=== PATIENT | female | born 1950 | race Caucasian/White ===

== ENCOUNTER 2022-01-03 18:56 | Inpatient (IN) ==
[2022-01-03] MEDS ORDERED: Ondansetron ODT 4 MG TAB.RAPDIS SL PRN (21:56)
[2022-01-03] MEDS ORDERED: Naloxone 0.4 MG/ML INJ IVP PRN (21:56)
[2022-01-03] MEDS ORDERED: Acetaminophen 325 MG TABLET PO PRN (21:56)
[2022-01-03] MEDS ORDERED: Dextrose Gel 15 GM/37.5 ML TUBE PO PRN ×2 (22:03)
[2022-01-03] MEDS ORDERED: D5% in Water 1,000 ML IVC PRN (22:03)
[2022-01-03] MEDS ORDERED: *HR* Dextrose 50 % in Water (Syg) 50 ML SYRINGE IVP PRN (22:03)
[2022-01-04] MEDS ORDERED: hydrALAZINE 10 MG TABLET PO PRN (00:12)
[2022-01-04] MEDS ORDERED: Ipratropium/Albuterol Neb 3 ML IH PRN (00:12)
[2022-01-04] MEDS ORDERED: Ondansetron 4 MG/2 ML VIAL IVP PRN (00:12)
[2022-01-04] MEDS ORDERED: Naloxone 0.4 MG/ML INJ IVP PRN (00:12)
[2022-01-04] MEDS: *HR* OxyCODONE Immed Rel 5 MG TABLET PO PRN (00:43)
[2022-01-04] MEDS: Melatonin 3 MG TABLET PO PRN ×2 (00:43→21:05)
[2022-01-04 04:53] LABS: Hematocrit 31.8 % (35.3-44.9); Hemoglobin 10.7 g/dL (11.5-15.4); Mean Corpuscular HGB Conc 33.6 g/dL (31.6-35.5); Mean Corpuscular Hemoglobin 29.5 pg (28.0-33.3); Mean Corpuscular Volume 87.6 fL (83.0-100.0); Mean Platelet Volume 8.5 fL (9.4-12.4); Platelet Count 425 K/mcL (140-400); Red Blood Count 3.63 M/mcL (3.82-4.97); White Blood Count 8.7 K/mcL (4.3-11.1)
[2022-01-04 04:57] LABS: INR 1.6; Prothrombin Time 17.9 Seconds (9.4-12.1)
[2022-01-04 05:00] LABS: Activated Partial Thrombo Time 34.1 Seconds (26.0-36.0)
[2022-01-04 05:08] LABS: BUN/Creatinine Ratio 17 (6-26); Blood Urea Nitrogen 11 mg/dL (8-23); Carbon Dioxide 30 mEq/L (23-29); Chloride 91 mEq/L (98-107); Glucose 181 mg/dL (70-105); Potassium 3.8 mEq/L (3.5-5.1); Sodium 128 mEq/L (136-145); eGFR For African Americans > 60 (> 60); eGFR For Non-African Americans > 60 (> 60)
[2022-01-04 05:09] LABS: Calcium 9.9 mg/dL (8.6-10.3); Magnesium 1.5 mg/dL (1.6-2.6); Osmolality,Calculated 270 (280-300); Phosphorous 3.4 mg/dL (2.7-4.5)
[2022-01-04 08:08] LABS: Alanine Aminotransferase 9 Units/L (7-52); Alkaline Phosphatase 71 Units/L (34-104); Aspartate Amino Transferase 22 Units/L (13-39); Bilirubin,Total 0.4 mg/dL (0.3-1.0); Total Protein 6.5 g/dL (6.4-8.9)
[2022-01-04] MEDS: *HR* Rivaroxaban 15 MG TABLET PO SCH ×2 (08:45→17:29)
[2022-01-04] MEDS: Aspirin Enteric Coated 81 MG Tablet PO SCH (08:45)
[2022-01-04] MEDS: lisinopriL 20 MG TABLET PO SCH (08:45)
[2022-01-04] MEDS: amLODIPine 5 MG TABLET PO SCH (08:45)
[2022-01-04] MEDS: Insulin LISPRO 300 UNITS/3 ML VIAL SUBQ SCH ×3 (08:46→17:29)
[2022-01-04 14:22] LABS: Estimated Average Glucose 183 mg/dl
[2022-01-04] MEDS: Vancomycin 1,500 MG/265 ML IV.SOLN IVPB SCH (17:29)
[2022-01-04] MEDS: Latanoprost 2.5 ML BOTTLE BOTH EYES SCH (21:05)
[2022-01-05] MEDS: *HR* OxyCODONE Immed Rel 5 MG TABLET PO PRN (00:21)
[2022-01-05 05:03] LABS: Hematocrit 31.4 % (35.3-44.9); Hemoglobin 10.5 g/dL (11.5-15.4); Mean Corpuscular HGB Conc 33.4 g/dL (31.6-35.5); Mean Corpuscular Hemoglobin 29.3 pg (28.0-33.3); Mean Corpuscular Volume 87.7 fL (83.0-100.0); Mean Platelet Volume 8.5 fL (9.4-12.4); Platelet Count 416 K/mcL (140-400); Red Blood Count 3.58 M/mcL (3.82-4.97); Red Cell Distribution Width 14.1 % (11.5-14.5); White Blood Count 8.6 K/mcL (4.3-11.1)
[2022-01-05 05:16] LABS: BUN/Creatinine Ratio 14 (6-26); Blood Urea Nitrogen 9 mg/dL (8-23); Calcium 9.4 mg/dL (8.6-10.3); Carbon Dioxide 29 mEq/L (23-29); Chloride 94 mEq/L (98-107); Glucose 172 mg/dL (70-105); Magnesium 1.8 mg/dL (1.6-2.6); Osmolality,Calculated 271 (280-300); Potassium 3.6 mEq/L (3.5-5.1); Sodium 129 mEq/L (136-145); eGFR For African Americans > 60 (> 60); eGFR For Non-African Americans > 60 (> 60)
[2022-01-05] MEDS: *HR* HYDROcodone/Acet 5/325 mg TABLET PO PRN ×2 (06:14→20:17)
[2022-01-05] MEDS: Aspirin Enteric Coated 81 MG Tablet PO SCH (08:18)
[2022-01-05] MEDS: lisinopriL 20 MG TABLET PO SCH (08:18)
[2022-01-05] MEDS: *HR* Rivaroxaban 15 MG TABLET PO SCH ×2 (08:18→17:48)
[2022-01-05] MEDS: Insulin LISPRO 300 UNITS/3 ML VIAL SUBQ SCH ×3 (08:18→17:48)
[2022-01-05] MEDS: amLODIPine 5 MG TABLET PO SCH (08:18)
[2022-01-05] MEDS: Vancomycin 1,500 MG/265 ML IV.SOLN IVPB SCH (08:18)
[2022-01-05] MEDS ORDERED: ceFAZolin 1,000 MG in Water for inj. (sterile) 10 ML IVP SCH (16:00)
[2022-01-05] MEDS: CeFAZolin 2,000 MG/120 ML BAG IVPB SCH (20:17)
[2022-01-05] MEDS: Melatonin 3 MG TABLET PO PRN (20:17)
[2022-01-05] MEDS: Latanoprost 2.5 ML BOTTLE BOTH EYES SCH (20:18)
[2022-01-06] MEDS: CeFAZolin 2,000 MG/120 ML BAG IVPB SCH ×3 (02:26→17:31)
[2022-01-06] MEDS: *HR* HYDROcodone/Acet 5/325 mg TABLET PO PRN ×2 (02:26→21:50)
[2022-01-06] MEDS: *HR* Rivaroxaban 15 MG TABLET PO SCH ×2 (09:10→17:30)
[2022-01-06] MEDS: Aspirin Enteric Coated 81 MG Tablet PO SCH (09:10)
[2022-01-06] MEDS: lisinopriL 20 MG TABLET PO SCH (09:10)
[2022-01-06] MEDS: amLODIPine 5 MG TABLET PO SCH (09:10)
[2022-01-06] MEDS: Insulin LISPRO 300 UNITS/3 ML VIAL SUBQ SCH ×3 (09:11→17:25)
[2022-01-06] MEDS ORDERED: Insulin DETEMIR 100 UNIT/ML per UNIT SUBQ ONE (09:15)
[2022-01-06] MEDS: Insulin DETEMIR 100 UNIT/ML X5UNITS SUBQ SCH ×2 (09:23→22:07)
[2022-01-06] MEDS: Melatonin 3 MG TABLET PO PRN (21:51)
[2022-01-06] MEDS: Latanoprost 2.5 ML BOTTLE BOTH EYES SCH (22:08)
[2022-01-07] MEDS: CeFAZolin 2,000 MG/120 ML BAG IVPB SCH ×3 (02:17→18:14)
[2022-01-07] MEDS: amLODIPine 5 MG TABLET PO SCH (08:34)
[2022-01-07] MEDS: lisinopriL 20 MG TABLET PO SCH (08:34)
[2022-01-07] MEDS: Aspirin Enteric Coated 81 MG Tablet PO SCH (08:34)
[2022-01-07] MEDS: *HR* Rivaroxaban 15 MG TABLET PO SCH ×2 (08:35→18:14)
[2022-01-07] MEDS: polyethylene glycoL 3350 17 GM POWD.PACK PO SCH (08:35)
[2022-01-07] MEDS: Insulin LISPRO 300 UNITS/3 ML VIAL SUBQ SCH ×3 (08:35→18:15)
[2022-01-07] MEDS: Insulin DETEMIR 100 UNIT/ML X5UNITS SUBQ SCH ×2 (08:36→22:35)
[2022-01-07] MEDS: Melatonin 3 MG TABLET PO PRN (22:28)
[2022-01-07] MEDS: *HR* HYDROcodone/Acet 5/325 mg TABLET PO PRN (22:32)
[2022-01-07] MEDS: Latanoprost 2.5 ML BOTTLE BOTH EYES SCH (22:38)
[2022-01-08] MEDS: CeFAZolin 2,000 MG/120 ML BAG IVPB SCH ×3 (02:34→16:48)
[2022-01-08 04:45] LABS: Basophils # 0.1 K/mcL (0.0-0.2); Basophils % 0.7 %; Eosinophils # 0.2 K/mcL (0.0-0.6); Eosinophils % 3.2 %; Immature Granulocytes % 0.7 % (0-4); Lymphocytes # 2.1 K/mcL (0.6-4.6); Mean Corpuscular HGB Conc 32.3 g/dL (31.6-35.5); Mean Corpuscular Hemoglobin 28.8 pg (28.0-33.3); Mean Corpuscular Volume 89.3 fL (83.0-100.0); Mean Platelet Volume 8.8 fL (9.4-12.4); Monocytes # 0.9 K/mcL (0.0-1.3); Monocytes % 12.3 %; Neutrophils # 3.9 K/mcL (1.6-8.9); Platelet Count 347 K/mcL (140-400); Red Blood Count 3.47 M/mcL (3.82-4.97); Red Cell Distribution Width 14.2 % (11.5-14.5); Segmented Neutrophils % 54.1 %; White Blood Count 7.2 K/mcL (4.3-11.1)
[2022-01-08 04:57] LABS: BUN/Creatinine Ratio 15 (6-26); Blood Urea Nitrogen 10 mg/dL (8-23); Calcium 9.9 mg/dL (8.6-10.3); Carbon Dioxide 31 mEq/L (23-29); Chloride 99 mEq/L (98-107); Glucose 161 mg/dL (70-105); Osmolality,Calculated 283 (280-300); Potassium 3.9 mEq/L (3.5-5.1); Sodium 135 mEq/L (136-145); eGFR For African Americans > 60 (> 60); eGFR For Non-African Americans > 60 (> 60)
[2022-01-08 06:51] VITALS: BP 155/78; PULSE 99; RESP 16; TEMP 98.1; O2SAT 98
[2022-01-08] MEDS: *HR* OxyCODONE Immed Rel 5 MG TABLET PO PRN (06:51)
[2022-01-08] MEDS: lisinopriL 20 MG TABLET PO SCH (09:36)
[2022-01-08] MEDS: amLODIPine 5 MG TABLET PO SCH (09:36)
[2022-01-08] MEDS: *HR* Rivaroxaban 15 MG TABLET PO SCH ×2 (09:36→16:48)
[2022-01-08] MEDS: Insulin LISPRO 300 UNITS/3 ML VIAL SUBQ SCH ×3 (09:36→16:45)
[2022-01-08] MEDS: Aspirin Enteric Coated 81 MG Tablet PO SCH (09:36)
[2022-01-08] MEDS: Insulin DETEMIR 100 UNIT/ML X5UNITS SUBQ SCH (09:37)
[2022-01-08] MEDS: polyethylene glycoL 3350 17 GM POWD.PACK PO SCH (09:38)
[2022-01-08] MEDS ORDERED: Sennosides/Docusate Sodium TABLET PO SCH (21:00)
[2022-01-08] MEDS ORDERED: polyethylene glycoL 3350 17 GM POWD.PACK PO SCH (21:00)
[2022-01-24] MEDS ORDERED: *HR* Rivaroxaban 10 MG TABLET PO SCH (17:00)
== END 2022-01-08 19:24 | disposition short-term general hospital (02) | DRG 602 ==
LOC: INPGRE 20:20
PROVIDERS: ADMIT Family Medicine; ATTEND Family Medicine

== ENCOUNTER 2022-01-31 16:14 | Inpatient (IN) ==
[2022-01-31] MEDS ORDERED: D5% in Water 1,000 ML IVC PRN (21:58)
[2022-01-31] MEDS ORDERED: *HR* Dextrose 50 % in Water (Syg) 50 ML SYRINGE IVP PRN (21:58)
[2022-01-31] MEDS ORDERED: Dextrose Gel 15 GM/37.5 ML TUBE PO PRN ×2 (21:58)
[2022-01-31] MEDS ORDERED: NON-FORMULARY MEDICATION 1 EACH EACH (Cefazolin 2,000 MG/120 ML Bag) IVPB SCH (22:00)
[2022-02-01] MEDS ORDERED: SODIUM CHLORIDE MINI 0.9% IVPB SCH
[2022-02-01] MEDS ORDERED: CEFAZOLIN IVPB SCH
[2022-02-01 00:08] LABS: Bilirubin,Urine Negative (Negative); Blood,Urine Moderate (Negative); Clarity,Urine Slightly Cloudy (Clear); Color,Urine Yellow (Yellow); Glucose,Urine (UA) Normal (Normal); Ketones,Urine Negative (Negative); Leukocyte Esterase,Urine Moderate (Negative); Nitrite,Urine Negative (Negative); Protein,Urine Negative (Neg-Trace); Specific Gravity,Urine 1.015 (1.010-1.025); Urobilinogen,Urine Normal (Normal)
[2022-02-01 00:19] LABS: Squamous Epithelial Cell,Urine Few per hpf (None-Few); WBC,Urine 15-30 per hpf (0-3)
[2022-02-01 00:20] LABS: Triple Phosphate Crystal,Urine Present per hpf
[2022-02-01 00:21] LABS: Bacteria,Urine Few per hpf (None-Few)
[2022-02-01] MEDS: ceFAZolin 1,000 MG in 0.9 % Sodium Chloride Mini Bag 100 ML IVPB SCH ×2 (00:23→00:59)
[2022-02-01 04:56] LABS: Basophils # 0.1 K/mcL (0.0-0.2); Basophils % 0.8 %; Eosinophils # 0.4 K/mcL (0.0-0.6); Hematocrit 32.2 % (35.3-44.9); Hemoglobin 10.2 g/dL (11.5-15.4); Immature Granulocytes % 0.5 % (0-4); Lymphocytes # 3.1 K/mcL (0.6-4.6); Lymphocytes % 42.1 %; Mean Corpuscular HGB Conc 31.7 g/dL (31.6-35.5); Mean Corpuscular Hemoglobin 28.7 pg (28.0-33.3); Mean Corpuscular Volume 90.4 fL (83.0-100.0); Mean Platelet Volume 8.9 fL (9.4-12.4); Monocytes # 0.8 K/mcL (0.0-1.3); Monocytes % 11.1 %; Neutrophils # 2.9 K/mcL (1.6-8.9); Platelet Count 292 K/mcL (140-400); Red Blood Count 3.56 M/mcL (3.82-4.97); Red Cell Distribution Width 15.6 % (11.5-14.5); Segmented Neutrophils % 39.5 %; White Blood Count 7.3 K/mcL (4.3-11.1)
[2022-02-01 05:14] LABS: BUN/Creatinine Ratio 27 (6-26); Blood Urea Nitrogen 16 mg/dL (8-23); Calcium 9.5 mg/dL (8.6-10.3); Carbon Dioxide 27 mEq/L (23-29); Chloride 105 mEq/L (98-107); Glucose 130 mg/dL (70-105); Osmolality,Calculated 293 (280-300); Potassium 2.9 mEq/L (3.5-5.1); Sodium 140 mEq/L (136-145)
[2022-02-01] MEDS: Insulin LISPRO 300 UNITS/3 ML VIAL SUBQ SCH ×3 (08:57→16:30)
[2022-02-01] MEDS ORDERED: amLODIPine 5 MG TABLET PO SCH (09:00)
[2022-02-01] MEDS: *HR* Rivaroxaban 15 MG TABLET PO SCH ×2 (09:37→16:52)
[2022-02-01] MEDS: Aspirin Enteric Coated 81 MG Tablet PO SCH (09:37)
[2022-02-01] MEDS: lisinopriL 20 MG TABLET PO SCH (09:38)
[2022-02-01] MEDS: CeFAZolin 2,000 MG/120 ML BAG IVPB SCH ×2 (09:39→14:34)
[2022-02-01] MEDS: polyethylene glycoL 3350 17 GM POWD.PACK PO SCH (09:39)
[2022-02-01] MEDS: Insulin DETEMIR 100 UNIT/ML X5UNITS SUBQ SCH ×2 (09:39→20:35)
[2022-02-01] MEDS: Gabapentin 100 MG CAPSULE PO SCH ×2 (15:55→20:36)
[2022-02-01] MEDS: Nafcillin 2,000 MG in 0.9 % Sodium Chloride Mini Bag 100 ML IVPB SCH (20:35)
[2022-02-01] MEDS: Melatonin 3 MG TABLET PO PRN (20:36)
[2022-02-01] MEDS: ceFAZolin 2,000 MG in 0.9 % Sodium Chloride 100 ML IVPB SCH (21:49)
[2022-02-01] MEDS: Latanoprost 2.5 ML BOTTLE BOTH EYES SCH (21:49)
[2022-02-02] MEDS: Nafcillin 2,000 MG in 0.9 % Sodium Chloride Mini Bag 100 ML IVPB SCH ×6 (00:26→20:28)
[2022-02-02] MEDS: ceFAZolin 2,000 MG in 0.9 % Sodium Chloride 100 ML IVPB SCH (04:46)
[2022-02-02 05:12] LABS: Hemoglobin 9.9 g/dL (11.5-15.4); Mean Corpuscular HGB Conc 31.9 g/dL (31.6-35.5); Mean Corpuscular Hemoglobin 29.1 pg (28.0-33.3); Mean Corpuscular Volume 91.2 fL (83.0-100.0); Mean Platelet Volume 8.7 fL (9.4-12.4); Platelet Count 271 K/mcL (140-400); Red Cell Distribution Width 15.7 % (11.5-14.5); White Blood Count 5.7 K/mcL (4.3-11.1)
[2022-02-02 05:28] LABS: Alanine Aminotransferase 5 Units/L (7-52); Albumin/Globulin Ratio 0.9 (1.1-2.2); Alkaline Phosphatase 112 Units/L (34-104); Aspartate Amino Transferase 7 Units/L (13-39); BUN/Creatinine Ratio 18 (6-26); Bilirubin,Total 0.4 mg/dL (0.3-1.0); Blood Urea Nitrogen 10 mg/dL (8-23); Calcium 9.2 mg/dL (8.6-10.3); Carbon Dioxide 26 mEq/L (23-29); Chloride 107 mEq/L (98-107); Globulin 3.3 g/dL (2.4-3.5); Glucose 153 mg/dL (70-105); Magnesium 1.9 mg/dL (1.6-2.6); Osmolality,Calculated 294 (280-300); Potassium 3.5 mEq/L (3.5-5.1); Sodium 141 mEq/L (136-145); Total Protein 6.3 g/dL (6.4-8.9)
[2022-02-02] MEDS: Insulin DETEMIR 100 UNIT/ML X5UNITS SUBQ SCH ×2 (08:05→20:27)
[2022-02-02] MEDS: *HR* Rivaroxaban 15 MG TABLET PO SCH ×2 (08:06→15:55)
[2022-02-02] MEDS: Gabapentin 100 MG CAPSULE PO SCH ×3 (08:06→20:27)
[2022-02-02] MEDS: Insulin LISPRO 300 UNITS/3 ML VIAL SUBQ SCH ×3 (08:06→16:20)
[2022-02-02] MEDS: lisinopriL 20 MG TABLET PO SCH (08:06)
[2022-02-02] MEDS: Aspirin Enteric Coated 81 MG Tablet PO SCH (08:06)
[2022-02-02] MEDS: polyethylene glycoL 3350 17 GM POWD.PACK PO SCH (08:07)
[2022-02-02] MEDS: NIFEdipine XL (24 HR) 30 MG TAB.ER.24 PO SCH (08:09)
[2022-02-02 10:30] LABS: Estimated Average Glucose 146 mg/dl; Hemoglobin A1C 6.7 %
[2022-02-02] MEDS: CeFAZolin 2,000 MG/120 ML BAG IVPB SCH (16:53)
[2022-02-02] MEDS: Melatonin 3 MG TABLET PO PRN (20:26)
[2022-02-02] MEDS: Latanoprost 2.5 ML BOTTLE BOTH EYES SCH (20:27)
[2022-02-03] MEDS: Nafcillin 2,000 MG in 0.9 % Sodium Chloride Mini Bag 100 ML IVPB SCH ×6 (00:32→21:18)
[2022-02-03] MEDS: CeFAZolin 2,000 MG/120 ML BAG IVPB SCH ×2 (01:07→08:17)
[2022-02-03] MEDS: NIFEdipine XL (24 HR) 30 MG TAB.ER.24 PO SCH (08:05)
[2022-02-03] MEDS: lisinopriL 20 MG TABLET PO SCH (08:06)
[2022-02-03] MEDS: *HR* Rivaroxaban 15 MG TABLET PO SCH ×2 (08:06→17:01)
[2022-02-03] MEDS: Gabapentin 100 MG CAPSULE PO SCH ×3 (08:06→21:18)
[2022-02-03] MEDS: polyethylene glycoL 3350 17 GM POWD.PACK PO SCH (08:07)
[2022-02-03] MEDS: Aspirin Enteric Coated 81 MG Tablet PO SCH (08:07)
[2022-02-03] MEDS: Insulin DETEMIR 100 UNIT/ML X5UNITS SUBQ SCH ×2 (08:33→21:17)
[2022-02-03] MEDS: Insulin LISPRO 300 UNITS/3 ML VIAL SUBQ SCH ×3 (08:33→16:59)
[2022-02-03] MEDS: Ertapenem 1,000 MG in 0.9 % Sodium Chloride Mini Bag 100 ML IVPB SCH (12:39)
[2022-02-03] MEDS: Melatonin 3 MG TABLET PO PRN (21:17)
[2022-02-03] MEDS: Lactobacillus 1 EACH CAP.SPRINK PO SCH (21:18)
[2022-02-03] MEDS: Latanoprost 2.5 ML BOTTLE BOTH EYES SCH (21:26)
[2022-02-04] MEDS: Nafcillin 2,000 MG in 0.9 % Sodium Chloride Mini Bag 100 ML IVPB SCH ×6 (00:28→20:00)
[2022-02-04] MEDS: NIFEdipine XL (24 HR) 30 MG TAB.ER.24 PO SCH (08:07)
[2022-02-04] MEDS: *HR* Rivaroxaban 15 MG TABLET PO SCH ×2 (08:07→16:00)
[2022-02-04] MEDS: lisinopriL 20 MG TABLET PO SCH (08:07)
[2022-02-04] MEDS: Gabapentin 100 MG CAPSULE PO SCH ×3 (08:08→19:59)
[2022-02-04] MEDS: Lactobacillus 1 EACH CAP.SPRINK PO SCH ×2 (08:08→19:59)
[2022-02-04] MEDS: polyethylene glycoL 3350 17 GM POWD.PACK PO SCH (08:08)
[2022-02-04] MEDS: Aspirin Enteric Coated 81 MG Tablet PO SCH (08:08)
[2022-02-04] MEDS: Ertapenem 1,000 MG in 0.9 % Sodium Chloride Mini Bag 100 ML IVPB SCH (08:09)
[2022-02-04] MEDS: Insulin LISPRO 300 UNITS/3 ML VIAL SUBQ SCH ×3 (08:11→16:01)
[2022-02-04] MEDS: Insulin DETEMIR 100 UNIT/ML X5UNITS SUBQ SCH ×2 (10:26→20:01)
[2022-02-04] MEDS: Melatonin 3 MG TABLET PO PRN (19:59)
[2022-02-04] MEDS: *HR* HYDROcodone/Acet 5/325 mg TABLET PO PRN (19:59)
[2022-02-04] MEDS: Latanoprost 2.5 ML BOTTLE BOTH EYES SCH (20:00)
[2022-02-05] MEDS: Nafcillin 2,000 MG in 0.9 % Sodium Chloride Mini Bag 100 ML IVPB SCH ×6 (00:03→19:39)
[2022-02-05 04:45] LABS: Basophils # 0.1 K/mcL (0.0-0.2); Basophils % 1.2 %; Eosinophils # 0.5 K/mcL (0.0-0.6); Eosinophils % 7.8 %; Hematocrit 32.2 % (35.3-44.9); Hemoglobin 10.5 g/dL (11.5-15.4); Immature Granulocytes % 0.2 % (0-4); Lymphocytes # 2.5 K/mcL (0.6-4.6); Lymphocytes % 42.9 %; Mean Corpuscular HGB Conc 32.6 g/dL (31.6-35.5); Mean Corpuscular Hemoglobin 29.5 pg (28.0-33.3); Mean Corpuscular Volume 90.4 fL (83.0-100.0); Mean Platelet Volume 8.7 fL (9.4-12.4); Monocytes # 0.6 K/mcL (0.0-1.3); Monocytes % 10.4 %; Neutrophils # 2.2 K/mcL (1.6-8.9); Platelet Count 231 K/mcL (140-400); Red Blood Count 3.56 M/mcL (3.82-4.97); Red Cell Distribution Width 15.6 % (11.5-14.5); Segmented Neutrophils % 37.5 %; White Blood Count 5.9 K/mcL (4.3-11.1)
[2022-02-05 05:54] LABS: Blood Urea Nitrogen 8 mg/dL (8-23); Calcium 9.2 mg/dL (8.6-10.3); Carbon Dioxide 29 mEq/L (23-29); Chloride 105 mEq/L (98-107); Glucose 154 mg/dL (70-105); Osmolality,Calculated 291 (280-300); Potassium 3.8 mEq/L (3.5-5.1); Sodium 140 mEq/L (136-145)
[2022-02-05 05:58] LABS: BUN/Creatinine Ratio 14 (6-26)
[2022-02-05] MEDS: Gabapentin 100 MG CAPSULE PO SCH ×3 (08:30→19:41)
[2022-02-05] MEDS: NIFEdipine XL (24 HR) 30 MG TAB.ER.24 PO SCH (08:30)
[2022-02-05] MEDS: Lactobacillus 1 EACH CAP.SPRINK PO SCH ×2 (08:30→19:40)
[2022-02-05] MEDS: lisinopriL 20 MG TABLET PO SCH (08:30)
[2022-02-05] MEDS: Aspirin Enteric Coated 81 MG Tablet PO SCH (08:30)
[2022-02-05] MEDS: *HR* Rivaroxaban 15 MG TABLET PO SCH ×2 (08:30→16:15)
[2022-02-05] MEDS: Ertapenem 1,000 MG in 0.9 % Sodium Chloride Mini Bag 100 ML IVPB SCH (08:31)
[2022-02-05] MEDS: Insulin DETEMIR 100 UNIT/ML X5UNITS SUBQ SCH ×2 (08:31→19:41)
[2022-02-05] MEDS: Insulin LISPRO 300 UNITS/3 ML VIAL SUBQ SCH ×3 (08:31→16:12)
[2022-02-05] MEDS: polyethylene glycoL 3350 17 GM POWD.PACK PO SCH (08:32)
[2022-02-05] MEDS: Latanoprost 2.5 ML BOTTLE BOTH EYES SCH (19:40)
[2022-02-05] MEDS: Melatonin 3 MG TABLET PO PRN (19:41)
[2022-02-06] MEDS: Nafcillin 2,000 MG in 0.9 % Sodium Chloride Mini Bag 100 ML IVPB SCH ×6 (00:07→20:39)
[2022-02-06] MEDS: Insulin LISPRO 300 UNITS/3 ML VIAL SUBQ SCH ×3 (07:39→17:24)
[2022-02-06] MEDS: Ertapenem 1,000 MG in 0.9 % Sodium Chloride Mini Bag 100 ML IVPB SCH (08:49)
[2022-02-06] MEDS: Aspirin Enteric Coated 81 MG Tablet PO SCH (08:49)
[2022-02-06] MEDS: Insulin DETEMIR 100 UNIT/ML X5UNITS SUBQ SCH ×2 (08:50→20:40)
[2022-02-06] MEDS: NIFEdipine XL (24 HR) 30 MG TAB.ER.24 PO SCH (08:50)
[2022-02-06] MEDS: Gabapentin 100 MG CAPSULE PO SCH ×3 (08:50→20:39)
[2022-02-06] MEDS: Lactobacillus 1 EACH CAP.SPRINK PO SCH ×2 (08:50→20:39)
[2022-02-06] MEDS: *HR* Rivaroxaban 15 MG TABLET PO SCH ×2 (08:50→15:57)
[2022-02-06] MEDS: lisinopriL 20 MG TABLET PO SCH (08:50)
[2022-02-06] MEDS: polyethylene glycoL 3350 17 GM POWD.PACK PO SCH (08:51)
[2022-02-06 17:47] LABS: Adenovirus F 40/41 PCR Not detected (Not detect); Astrovirus PCR Not detected (Not detect); C.difficile Toxin A/B Gene PCR Not detected (Not detect); Campylobacter by PCR Not detected (Not detect); Cryptosporidium by PCR Not detected (Not detect); Cyclospora cayetanensis PCR Not detected (Not detect); Entamoeba histolytica PCR Not detected (Not detect); Enteroaggregative E.coli(EAEC) Not detected (Not detect); Enteropathogenic E.coli(EPEC) Not detected (Not detect); Enterotoxigenic E.coli (ETEC) Not detected (Not detect); Giardia lamblia PCR Not detected (Not detect); Norovirus GI/GII PCR Not detected (Not detect); Plesiomonas shigelloides PCR Not detected (Not detect); Rotavirus A PCR Not detected (Not detect); Salmonella PCR Not detected (Not detect); Sapovirus PCR Not detected (Not detect); Shig/EnteroinvasiveE coli EIEC Not detected (Not detect); Shigalike tox-prod E coli STEC Not detected (Not detect); Vibrio PCR Not detected (Not detect); Vibrio cholerae PCR Not detected (Not detect); Yersinia enterocolitica PCR Not detected (Not detect)
[2022-02-06] MEDS ORDERED: Gabapentin 100 MG CAPSULE ONE (20:12)
[2022-02-06] MEDS ORDERED: Lactobacillus 1 EACH CAP.SPRINK ONE (20:12)
[2022-02-06] MEDS ORDERED: 0.9 % Sodium Chloride Mini Bag 100 ML ONE (20:13)
[2022-02-06] MEDS: Latanoprost 2.5 ML BOTTLE BOTH EYES SCH (20:39)
[2022-02-07] MEDS: Nafcillin 2,000 MG in 0.9 % Sodium Chloride Mini Bag 100 ML IVPB SCH ×7 (00:04→23:56)
[2022-02-07] MEDS: Insulin DETEMIR 100 UNIT/ML X5UNITS SUBQ SCH ×2 (08:19→20:41)
[2022-02-07] MEDS: Insulin LISPRO 300 UNITS/3 ML VIAL SUBQ SCH ×3 (08:19→16:32)
[2022-02-07] MEDS: polyethylene glycoL 3350 17 GM POWD.PACK PO SCH (08:19)
[2022-02-07] MEDS: Ertapenem 1,000 MG in 0.9 % Sodium Chloride Mini Bag 100 ML IVPB SCH (08:21)
[2022-02-07] MEDS: lisinopriL 20 MG TABLET PO SCH (08:22)
[2022-02-07] MEDS: Gabapentin 100 MG CAPSULE PO SCH ×3 (08:23→20:39)
[2022-02-07] MEDS: NIFEdipine XL (24 HR) 30 MG TAB.ER.24 PO SCH (08:23)
[2022-02-07] MEDS: Aspirin Enteric Coated 81 MG Tablet PO SCH (08:23)
[2022-02-07] MEDS: *HR* Rivaroxaban 15 MG TABLET PO SCH ×2 (08:23→16:40)
[2022-02-07] MEDS: Lactobacillus 1 EACH CAP.SPRINK PO SCH ×2 (08:23→20:39)
[2022-02-07] MEDS ORDERED: polyethylene glycoL 3350 17 GM POWD.PACK PO PRN (15:07)
[2022-02-07] MEDS: *HR* HYDROcodone/Acet 5/325 mg TABLET PO PRN (20:39)
[2022-02-07] MEDS: Melatonin 3 MG TABLET PO PRN (21:58)
[2022-02-07] MEDS: Latanoprost 2.5 ML BOTTLE BOTH EYES SCH (22:00)
[2022-02-08] MEDS: Nafcillin 2,000 MG in 0.9 % Sodium Chloride Mini Bag 100 ML IVPB SCH ×5 (04:14→20:57)
[2022-02-08 05:33] LABS: Basophils % 0.7 %; Eosinophils # 0.5 K/mcL (0.0-0.6); Eosinophils % 8.2 %; Hematocrit 33.3 % (35.3-44.9); Hemoglobin 10.6 g/dL (11.5-15.4); Immature Granulocytes % 0.3 % (0-4); Lymphocytes # 2.3 K/mcL (0.6-4.6); Lymphocytes % 40.2 %; Mean Corpuscular HGB Conc 31.8 g/dL (31.6-35.5); Mean Corpuscular Hemoglobin 28.7 pg (28.0-33.3); Mean Corpuscular Volume 90.2 fL (83.0-100.0); Monocytes # 0.5 K/mcL (0.0-1.3); Monocytes % 9.4 %; Neutrophils # 2.4 K/mcL (1.6-8.9); Platelet Count 224 K/mcL (140-400); Red Blood Count 3.69 M/mcL (3.82-4.97); Red Cell Distribution Width 15.5 % (11.5-14.5); Segmented Neutrophils % 41.2 %; White Blood Count 5.7 K/mcL (4.3-11.1)
[2022-02-08 05:51] LABS: Alanine Aminotransferase 5 Units/L (7-52); Albumin 3.1 g/dL (3.5-5.7); Albumin/Globulin Ratio 0.9 (1.1-2.2); Alkaline Phosphatase 108 Units/L (34-104); Aspartate Amino Transferase 9 Units/L (13-39); BUN/Creatinine Ratio 18 (6-26); Bilirubin,Total 0.4 mg/dL (0.3-1.0); Blood Urea Nitrogen 10 mg/dL (8-23); Calcium 9.6 mg/dL (8.6-10.3); Carbon Dioxide 28 mEq/L (23-29); Chloride 105 mEq/L (98-107); Globulin 3.5 g/dL (2.4-3.5); Glucose 161 mg/dL (70-105); Osmolality,Calculated 293 (280-300); Potassium 3.5 mEq/L (3.5-5.1); Sodium 140 mEq/L (136-145); Total Protein 6.6 g/dL (6.4-8.9)
[2022-02-08] MEDS: NIFEdipine XL (24 HR) 30 MG TAB.ER.24 PO SCH (08:24)
[2022-02-08] MEDS: Aspirin Enteric Coated 81 MG Tablet PO SCH (08:25)
[2022-02-08] MEDS: Gabapentin 100 MG CAPSULE PO SCH ×2 (08:25→16:34)
[2022-02-08] MEDS: Insulin LISPRO 300 UNITS/3 ML VIAL SUBQ SCH ×3 (08:25→17:21)
[2022-02-08] MEDS: lisinopriL 20 MG TABLET PO SCH (08:25)
[2022-02-08] MEDS: *HR* Rivaroxaban 15 MG TABLET PO SCH ×2 (08:25→15:25)
[2022-02-08] MEDS: Lactobacillus 1 EACH CAP.SPRINK PO SCH ×2 (08:25→20:55)
[2022-02-08] MEDS: Insulin DETEMIR 100 UNIT/ML X5UNITS SUBQ SCH ×2 (08:26→20:57)
[2022-02-08] MEDS: Ertapenem 1,000 MG in 0.9 % Sodium Chloride Mini Bag 100 ML IVPB SCH (09:28)
[2022-02-08] MEDS: Gabapentin 300 MG CAPSULE PO SCH (20:55)
[2022-02-08] MEDS: Melatonin 3 MG TABLET PO PRN (20:56)
[2022-02-08] MEDS: *HR* HYDROcodone/Acet 5/325 mg TABLET PO PRN (20:56)
[2022-02-08] MEDS: Latanoprost 2.5 ML BOTTLE BOTH EYES SCH (20:57)
[2022-02-09] MEDS: Nafcillin 2,000 MG in 0.9 % Sodium Chloride Mini Bag 100 ML IVPB SCH ×6 (00:56→21:11)
[2022-02-09] MEDS: *HR* Rivaroxaban 15 MG TABLET PO SCH ×2 (09:10→16:59)
[2022-02-09] MEDS: lisinopriL 20 MG TABLET PO SCH (09:11)
[2022-02-09] MEDS: Gabapentin 300 MG CAPSULE PO SCH ×3 (09:11→21:09)
[2022-02-09] MEDS: Lactobacillus 1 EACH CAP.SPRINK PO SCH ×2 (09:11→21:09)
[2022-02-09] MEDS: Aspirin Enteric Coated 81 MG Tablet PO SCH (09:11)
[2022-02-09] MEDS: NIFEdipine XL (24 HR) 30 MG TAB.ER.24 PO SCH (09:12)
[2022-02-09] MEDS: Insulin DETEMIR 100 UNIT/ML X5UNITS SUBQ SCH ×2 (09:12→21:10)
[2022-02-09] MEDS: Insulin LISPRO 300 UNITS/3 ML VIAL SUBQ SCH ×3 (09:54→17:02)
[2022-02-09] MEDS: Ertapenem 1,000 MG in 0.9 % Sodium Chloride Mini Bag 100 ML IVPB SCH (10:23)
[2022-02-09] MEDS: *HR* HYDROcodone/Acet 5/325 mg TABLET PO PRN (21:09)
[2022-02-09] MEDS: Latanoprost 2.5 ML BOTTLE BOTH EYES SCH (21:18)
[2022-02-10] MEDS: Nafcillin 2,000 MG in 0.9 % Sodium Chloride Mini Bag 100 ML IVPB SCH ×6 (00:55→20:05)
[2022-02-10] MEDS: Lactobacillus 1 EACH CAP.SPRINK PO SCH ×2 (09:10→19:57)
[2022-02-10] MEDS: *HR* Rivaroxaban 15 MG TABLET PO SCH ×2 (09:10→15:54)
[2022-02-10] MEDS: Aspirin Enteric Coated 81 MG Tablet PO SCH (09:10)
[2022-02-10] MEDS: NIFEdipine XL (24 HR) 30 MG TAB.ER.24 PO SCH (09:11)
[2022-02-10] MEDS: Gabapentin 300 MG CAPSULE PO SCH ×3 (09:11→19:57)
[2022-02-10] MEDS: lisinopriL 20 MG TABLET PO SCH (09:11)
[2022-02-10] MEDS: Insulin DETEMIR 100 UNIT/ML X5UNITS SUBQ SCH ×2 (09:13→19:57)
[2022-02-10] MEDS: Insulin LISPRO 300 UNITS/3 ML VIAL SUBQ SCH ×3 (09:53→16:20)
[2022-02-10] MEDS: Ertapenem 1,000 MG in 0.9 % Sodium Chloride Mini Bag 100 ML IVPB SCH (10:07)
[2022-02-10] MEDS ORDERED: Iopamidol - 370 500 ML MLS IVP ONE (12:38)
[2022-02-10 13:29] LABS: Hematocrit 36.4 % (35.3-44.9); Hemoglobin 11.8 g/dL (11.5-15.4); Mean Corpuscular HGB Conc 32.4 g/dL (31.6-35.5); Mean Corpuscular Hemoglobin 29.1 pg (28.0-33.3); Mean Corpuscular Volume 89.9 fL (83.0-100.0); Mean Platelet Volume 8.7 fL (9.4-12.4); Platelet Count 237 K/mcL (140-400); Red Blood Count 4.05 M/mcL (3.82-4.97); Red Cell Distribution Width 15.3 % (11.5-14.5); White Blood Count 7.2 K/mcL (4.3-11.1)
[2022-02-10 13:42] LABS: BUN/Creatinine Ratio 15 (6-26); Blood Urea Nitrogen 9 mg/dL (8-23); Calcium 9.7 mg/dL (8.6-10.3); Carbon Dioxide 25 mEq/L (23-29); Chloride 105 mEq/L (98-107); Glucose 183 mg/dL (70-105); Osmolality,Calculated 293 (280-300); Sodium 140 mEq/L (136-145)
[2022-02-10] MEDS: Psyllium 1 PACKET POWD.PACK PO SCH ×2 (15:55→19:57)
[2022-02-10] MEDS: Latanoprost 2.5 ML BOTTLE BOTH EYES SCH (19:57)
[2022-02-11] MEDS: Nafcillin 2,000 MG in 0.9 % Sodium Chloride Mini Bag 100 ML IVPB SCH ×6 (00:08→20:12)
[2022-02-11] MEDS: Bisacodyl 10 MG RECTAL SUPPOSITORY RC SCH ×2 (06:25→09:11)
[2022-02-11] MEDS: Lactobacillus 1 EACH CAP.SPRINK PO SCH ×2 (08:44→20:11)
[2022-02-11] MEDS: Gabapentin 300 MG CAPSULE PO SCH ×3 (08:44→20:11)
[2022-02-11] MEDS: Aspirin Enteric Coated 81 MG Tablet PO SCH (08:45)
[2022-02-11] MEDS: *HR* Rivaroxaban 15 MG TABLET PO SCH ×2 (08:45→15:28)
[2022-02-11] MEDS: lisinopriL 20 MG TABLET PO SCH (08:45)
[2022-02-11] MEDS: Psyllium 1 PACKET POWD.PACK PO SCH ×3 (08:46→20:10)
[2022-02-11] MEDS: NIFEdipine XL (24 HR) 30 MG TAB.ER.24 PO SCH (08:46)
[2022-02-11] MEDS: Insulin DETEMIR 100 UNIT/ML X5UNITS SUBQ SCH ×2 (08:47→20:15)
[2022-02-11] MEDS: Insulin LISPRO 300 UNITS/3 ML VIAL SUBQ SCH ×3 (09:11→16:18)
[2022-02-11] MEDS: Latanoprost 2.5 ML BOTTLE BOTH EYES SCH (21:23)
[2022-02-12] MEDS: Nafcillin 2,000 MG in 0.9 % Sodium Chloride Mini Bag 100 ML IVPB SCH ×6 (00:02→19:54)
[2022-02-12] MEDS: Bisacodyl 10 MG RECTAL SUPPOSITORY RC SCH (05:27)
[2022-02-12] MEDS: NIFEdipine XL (24 HR) 30 MG TAB.ER.24 PO SCH (08:43)
[2022-02-12] MEDS: *HR* Rivaroxaban 15 MG TABLET PO SCH ×2 (08:44→16:33)
[2022-02-12] MEDS: Lactobacillus 1 EACH CAP.SPRINK PO SCH ×2 (08:44→19:51)
[2022-02-12] MEDS: Aspirin Enteric Coated 81 MG Tablet PO SCH (08:44)
[2022-02-12] MEDS: Psyllium 1 PACKET POWD.PACK PO SCH ×3 (08:44→19:47)
[2022-02-12] MEDS: Gabapentin 300 MG CAPSULE PO SCH ×3 (08:44→19:51)
[2022-02-12] MEDS: lisinopriL 20 MG TABLET PO SCH (08:45)
[2022-02-12] MEDS: Insulin LISPRO 300 UNITS/3 ML VIAL SUBQ SCH ×3 (08:46→16:34)
[2022-02-12] MEDS: Insulin DETEMIR 100 UNIT/ML X5UNITS SUBQ SCH ×2 (09:28→19:46)
[2022-02-12] MEDS: Melatonin 3 MG TABLET PO PRN (19:51)
[2022-02-12] MEDS: Latanoprost 2.5 ML BOTTLE BOTH EYES SCH (19:56)
[2022-02-13] MEDS: Nafcillin 2,000 MG in 0.9 % Sodium Chloride Mini Bag 100 ML IVPB SCH ×6 (01:34→20:41)
[2022-02-13] MEDS: Bisacodyl 10 MG RECTAL SUPPOSITORY RC SCH (02:55)
[2022-02-13 04:55] LABS: Hemoglobin 11.2 g/dL (11.5-15.4); Mean Corpuscular Hemoglobin 28.9 pg (28.0-33.3); Mean Corpuscular Volume 90.2 fL (83.0-100.0); Mean Platelet Volume 9.1 fL (9.4-12.4); Platelet Count 231 K/mcL (140-400); Red Blood Count 3.88 M/mcL (3.82-4.97); Red Cell Distribution Width 15.2 % (11.5-14.5); White Blood Count 6.8 K/mcL (4.3-11.1)
[2022-02-13 05:06] LABS: BUN/Creatinine Ratio 14 (6-26); Blood Urea Nitrogen 8 mg/dL (8-23); Calcium 9.7 mg/dL (8.6-10.3); Carbon Dioxide 26 mEq/L (23-29); Chloride 106 mEq/L (98-107); Glucose 154 mg/dL (70-105); Magnesium 1.8 mg/dL (1.6-2.6); Osmolality,Calculated 291 (280-300); Potassium 3.7 mEq/L (3.5-5.1); Sodium 140 mEq/L (136-145)
[2022-02-13] MEDS: Insulin LISPRO 300 UNITS/3 ML VIAL SUBQ SCH ×3 (07:40→18:30)
[2022-02-13] MEDS: Insulin DETEMIR 100 UNIT/ML X5UNITS SUBQ SCH ×2 (08:16→20:45)
[2022-02-13] MEDS: Lactobacillus 1 EACH CAP.SPRINK PO SCH ×2 (08:18→20:45)
[2022-02-13] MEDS: Gabapentin 300 MG CAPSULE PO SCH ×3 (08:18→20:45)
[2022-02-13] MEDS: Aspirin Enteric Coated 81 MG Tablet PO SCH (08:18)
[2022-02-13] MEDS: lisinopriL 20 MG TABLET PO SCH (08:18)
[2022-02-13] MEDS: Psyllium 1 PACKET POWD.PACK PO SCH ×4 (08:19→20:45)
[2022-02-13] MEDS: NIFEdipine XL (24 HR) 30 MG TAB.ER.24 PO SCH (08:19)
[2022-02-13] MEDS: *HR* Rivaroxaban 15 MG TABLET PO SCH ×2 (08:19→16:11)
[2022-02-13 16:23] LABS: C-Reactive Protein 9 mg/L (Less than 10)
[2022-02-13] MEDS: Melatonin 3 MG TABLET PO PRN (20:44)
[2022-02-14] MEDS: Latanoprost 2.5 ML BOTTLE BOTH EYES SCH ×2 (00:42→19:43)
[2022-02-14] MEDS: Nafcillin 2,000 MG in 0.9 % Sodium Chloride Mini Bag 100 ML IVPB SCH ×7 (00:42→23:36)
[2022-02-14] MEDS: Bisacodyl 10 MG RECTAL SUPPOSITORY RC SCH (00:43)
[2022-02-14 02:20] LABS: Bilirubin,Urine Negative (Negative); Blood,Urine Trace-lysed (Negative); Clarity,Urine Clear (Clear); Color,Urine Yellow (Yellow); Glucose,Urine (UA) Normal (Normal); Ketones,Urine Negative (Negative); Leukocyte Esterase,Urine Small (Negative); Nitrite,Urine Negative (Negative); Protein,Urine Negative (Neg-Trace); Urobilinogen,Urine Normal (Normal)
[2022-02-14 02:34] LABS: RBC,Urine 0-3 per hpf (0-3); WBC,Urine 0-3 per hpf (0-3)
[2022-02-14] MEDS: *HR* HYDROcodone/Acet 5/325 mg TABLET PO PRN (05:24)
[2022-02-14] MEDS: Insulin LISPRO 300 UNITS/3 ML VIAL SUBQ SCH ×3 (07:39→16:56)
[2022-02-14] MEDS: Insulin DETEMIR 100 UNIT/ML X5UNITS SUBQ SCH ×2 (08:12→19:36)
[2022-02-14] MEDS: Lactobacillus 1 EACH CAP.SPRINK PO SCH ×2 (08:14→19:34)
[2022-02-14] MEDS: *HR* Rivaroxaban 15 MG TABLET PO SCH ×2 (08:14→16:46)
[2022-02-14] MEDS: NIFEdipine XL (24 HR) 30 MG TAB.ER.24 PO SCH (08:14)
[2022-02-14] MEDS: Aspirin Enteric Coated 81 MG Tablet PO SCH (08:14)
[2022-02-14] MEDS: Gabapentin 300 MG CAPSULE PO SCH ×3 (08:15→19:33)
[2022-02-14] MEDS: lisinopriL 20 MG TABLET PO SCH (08:15)
[2022-02-14] MEDS: Psyllium 1 PACKET POWD.PACK PO SCH ×3 (08:15→19:37)
[2022-02-14] MEDS ORDERED: Potassium Chloride Elixir 20 MEQ/15 ML UDC PO SCH (09:00)
[2022-02-14] MEDS ORDERED: Gadolinium Contrast Agent (WT Based) IV PRN (11:59)
[2022-02-15] MEDS: Nafcillin 2,000 MG in 0.9 % Sodium Chloride Mini Bag 100 ML IVPB SCH ×6 (03:33→23:45)
[2022-02-15] MEDS: Bisacodyl 10 MG RECTAL SUPPOSITORY RC SCH (04:57)
[2022-02-15] MEDS: Insulin LISPRO 300 UNITS/3 ML VIAL SUBQ SCH ×3 (08:55→17:31)
[2022-02-15] MEDS: NIFEdipine XL (24 HR) 30 MG TAB.ER.24 PO SCH (08:56)
[2022-02-15] MEDS: lisinopriL 20 MG TABLET PO SCH (08:57)
[2022-02-15] MEDS: Aspirin Enteric Coated 81 MG Tablet PO SCH (08:57)
[2022-02-15] MEDS: Lactobacillus 1 EACH CAP.SPRINK PO SCH ×2 (08:57→20:15)
[2022-02-15] MEDS: *HR* Rivaroxaban 15 MG TABLET PO SCH ×2 (08:58→18:07)
[2022-02-15] MEDS: Psyllium 1 PACKET POWD.PACK PO SCH ×3 (08:58→20:15)
[2022-02-15] MEDS: Gabapentin 300 MG CAPSULE PO SCH ×2 (08:58→17:11)
[2022-02-15] MEDS: Insulin DETEMIR 100 UNIT/ML X5UNITS SUBQ SCH ×2 (13:34→22:37)
[2022-02-15] MEDS: Latanoprost 2.5 ML BOTTLE BOTH EYES SCH (20:20)
[2022-02-16] MEDS: Nafcillin 2,000 MG in 0.9 % Sodium Chloride Mini Bag 100 ML IVPB SCH ×5 (04:24→20:07)
[2022-02-16 05:06] LABS: Hemoglobin 11.3 g/dL (11.5-15.4); Mean Corpuscular HGB Conc 32.3 g/dL (31.6-35.5); Mean Platelet Volume 9.5 fL (9.4-12.4); Platelet Count 247 K/mcL (140-400); Red Blood Count 3.89 M/mcL (3.82-4.97); Red Cell Distribution Width 14.8 % (11.5-14.5); White Blood Count 5.5 K/mcL (4.3-11.1)
[2022-02-16 05:17] LABS: BUN/Creatinine Ratio 13 (6-26); Blood Urea Nitrogen 7 mg/dL (8-23); Calcium 9.7 mg/dL (8.6-10.3); Carbon Dioxide 29 mEq/L (23-29); Chloride 106 mEq/L (98-107); Glucose 146 mg/dL (70-105); Osmolality,Calculated 293 (280-300); Potassium 3.8 mEq/L (3.5-5.1); Sodium 141 mEq/L (136-145)
[2022-02-16] MEDS: Bisacodyl 10 MG RECTAL SUPPOSITORY RC SCH (05:34)
[2022-02-16] MEDS: Insulin LISPRO 300 UNITS/3 ML VIAL SUBQ SCH ×3 (07:43→16:32)
[2022-02-16] MEDS: Lactobacillus 1 EACH CAP.SPRINK PO SCH ×2 (08:09→20:08)
[2022-02-16] MEDS: Aspirin Enteric Coated 81 MG Tablet PO SCH (08:09)
[2022-02-16] MEDS: lisinopriL 20 MG TABLET PO SCH (08:09)
[2022-02-16] MEDS: NIFEdipine XL (24 HR) 30 MG TAB.ER.24 PO SCH (08:10)
[2022-02-16] MEDS: *HR* Rivaroxaban 15 MG TABLET PO SCH ×2 (08:11→16:30)
[2022-02-16] MEDS: Psyllium 1 PACKET POWD.PACK PO SCH ×3 (08:11→20:09)
[2022-02-16] MEDS: Gabapentin 300 MG CAPSULE PO SCH ×3 (08:11→20:09)
[2022-02-16] MEDS: Insulin DETEMIR 100 UNIT/ML X5UNITS SUBQ SCH ×2 (08:25→20:09)
[2022-02-16] MEDS: Latanoprost 2.5 ML BOTTLE BOTH EYES SCH (20:09)
[2022-02-16] MEDS: Melatonin 3 MG TABLET PO PRN (20:41)
[2022-02-17] MEDS: Nafcillin 2,000 MG in 0.9 % Sodium Chloride Mini Bag 100 ML IVPB SCH ×6 (00:09→21:14)
[2022-02-17] MEDS: Bisacodyl 10 MG RECTAL SUPPOSITORY RC SCH (05:02)
[2022-02-17] MEDS: Insulin LISPRO 300 UNITS/3 ML VIAL SUBQ SCH ×3 (08:12→16:31)
[2022-02-17] MEDS: Lactobacillus 1 EACH CAP.SPRINK PO SCH ×2 (08:12→21:15)
[2022-02-17] MEDS: Gabapentin 300 MG CAPSULE PO SCH ×3 (08:13→21:15)
[2022-02-17] MEDS: NIFEdipine XL (24 HR) 30 MG TAB.ER.24 PO SCH (08:13)
[2022-02-17] MEDS: lisinopriL 20 MG TABLET PO SCH (08:13)
[2022-02-17] MEDS: Psyllium 1 PACKET POWD.PACK PO SCH ×3 (08:14→21:16)
[2022-02-17] MEDS: Aspirin Enteric Coated 81 MG Tablet PO SCH (08:14)
[2022-02-17] MEDS: *HR* Rivaroxaban 15 MG TABLET PO SCH ×2 (08:14→16:30)
[2022-02-17] MEDS: Insulin DETEMIR 100 UNIT/ML X5UNITS SUBQ SCH ×2 (08:37→21:15)
[2022-02-17] MEDS: Latanoprost 2.5 ML BOTTLE BOTH EYES SCH (21:14)
[2022-02-17] MEDS: Doxycycline 100 MG CAPSULE PO SCH (21:15)
[2022-02-18] MEDS: Nafcillin 2,000 MG in 0.9 % Sodium Chloride Mini Bag 100 ML IVPB SCH ×6 (00:49→21:11)
[2022-02-18] MEDS: Bisacodyl 10 MG RECTAL SUPPOSITORY RC SCH (05:12)
[2022-02-18] MEDS: Insulin LISPRO 300 UNITS/3 ML VIAL SUBQ SCH ×3 (08:59→16:04)
[2022-02-18] MEDS ORDERED: NIFEdipine XL (24 HR) 60 MG TAB.ER.24 PO ONE (09:00)
[2022-02-18] MEDS ORDERED: NIFEdipine XL (24 HR) 30 MG TAB.ER.24 PO ONE (09:00)
[2022-02-18] MEDS: Lactobacillus 1 EACH CAP.SPRINK PO SCH ×2 (09:02→21:13)
[2022-02-18] MEDS: Gabapentin 300 MG CAPSULE PO SCH ×3 (09:02→21:13)
[2022-02-18] MEDS: lisinopriL 20 MG TABLET PO SCH (09:02)
[2022-02-18] MEDS: Doxycycline 100 MG CAPSULE PO SCH ×2 (09:02→21:13)
[2022-02-18] MEDS: *HR* Rivaroxaban 15 MG TABLET PO SCH ×2 (09:02→15:58)
[2022-02-18] MEDS: Insulin DETEMIR 100 UNIT/ML X5UNITS SUBQ SCH ×2 (09:03→21:12)
[2022-02-18] MEDS: Psyllium 1 PACKET POWD.PACK PO SCH ×3 (09:03→21:14)
[2022-02-18] MEDS: Aspirin Enteric Coated 81 MG Tablet PO SCH (09:03)
[2022-02-18] MEDS: Latanoprost 2.5 ML BOTTLE BOTH EYES SCH (21:12)
[2022-02-18] MEDS: Melatonin 3 MG TABLET PO PRN (21:12)
[2022-02-19] MEDS: Nafcillin 2,000 MG in 0.9 % Sodium Chloride Mini Bag 100 ML IVPB SCH ×7 (00:40→23:22)
[2022-02-19] MEDS: Bisacodyl 10 MG RECTAL SUPPOSITORY RC SCH (05:27)
[2022-02-19] MEDS: NIFEdipine XL (24 HR) 30 MG TAB.ER.24 PO SCH (09:23)
[2022-02-19] MEDS: lisinopriL 20 MG TABLET PO SCH (09:24)
[2022-02-19] MEDS: Aspirin Enteric Coated 81 MG Tablet PO SCH (09:24)
[2022-02-19] MEDS: Lactobacillus 1 EACH CAP.SPRINK PO SCH ×2 (09:26→20:15)
[2022-02-19] MEDS: Doxycycline 100 MG CAPSULE PO SCH ×2 (09:26→20:14)
[2022-02-19] MEDS: Gabapentin 300 MG CAPSULE PO SCH ×3 (09:27→20:14)
[2022-02-19] MEDS: Psyllium 1 PACKET POWD.PACK PO SCH ×3 (09:28→20:13)
[2022-02-19] MEDS: Insulin DETEMIR 100 UNIT/ML X5UNITS SUBQ SCH ×2 (09:29→20:14)
[2022-02-19] MEDS: Insulin LISPRO 300 UNITS/3 ML VIAL SUBQ SCH ×3 (09:47→16:43)
[2022-02-19] MEDS: *HR* Rivaroxaban 10 MG TABLET PO SCH (16:15)
[2022-02-19] MEDS: Melatonin 3 MG TABLET PO PRN (20:14)
[2022-02-19] MEDS: Latanoprost 2.5 ML BOTTLE BOTH EYES SCH (20:15)
[2022-02-20] MEDS: Nafcillin 2,000 MG in 0.9 % Sodium Chloride Mini Bag 100 ML IVPB SCH ×5 (04:35→20:07)
[2022-02-20] MEDS: Bisacodyl 10 MG RECTAL SUPPOSITORY RC SCH (04:36)
[2022-02-20 04:56] LABS: Basophils % 0.6 %; Eosinophils # 0.8 K/mcL (0.0-0.6); Hematocrit 36.3 % (35.3-44.9); Hemoglobin 11.5 g/dL (11.5-15.4); Immature Granulocytes % 0.3 % (0-4); Lymphocytes # 2.7 K/mcL (0.6-4.6); Lymphocytes % 39.7 %; Mean Corpuscular HGB Conc 31.7 g/dL (31.6-35.5); Mean Corpuscular Hemoglobin 28.8 pg (28.0-33.3); Mean Platelet Volume 9.1 fL (9.4-12.4); Monocytes # 0.7 K/mcL (0.0-1.3); Monocytes % 9.7 %; Neutrophils # 2.6 K/mcL (1.6-8.9); Platelet Count 273 K/mcL (140-400); Red Blood Count 3.99 M/mcL (3.82-4.97); Red Cell Distribution Width 14.7 % (11.5-14.5); Segmented Neutrophils % 38.7 %; White Blood Count 6.8 K/mcL (4.3-11.1)
[2022-02-20 05:07] LABS: BUN/Creatinine Ratio 20 (6-26); Blood Urea Nitrogen 13 mg/dL (8-23); Carbon Dioxide 28 mEq/L (23-29); Chloride 105 mEq/L (98-107); Glucose 133 mg/dL (70-105); Osmolality,Calculated 290 (280-300); Potassium 4.3 mEq/L (3.5-5.1); Sodium 139 mEq/L (136-145)
[2022-02-20] MEDS: Insulin LISPRO 300 UNITS/3 ML VIAL SUBQ SCH ×3 (07:38→17:47)
[2022-02-20] MEDS: Doxycycline 100 MG CAPSULE PO SCH ×2 (08:05→20:11)
[2022-02-20] MEDS: Lactobacillus 1 EACH CAP.SPRINK PO SCH ×2 (08:09→20:11)
[2022-02-20] MEDS: Gabapentin 300 MG CAPSULE PO SCH ×3 (08:09→20:12)
[2022-02-20] MEDS: NIFEdipine XL (24 HR) 30 MG TAB.ER.24 PO SCH (08:09)
[2022-02-20] MEDS: lisinopriL 20 MG TABLET PO SCH (08:09)
[2022-02-20] MEDS: Insulin DETEMIR 100 UNIT/ML X5UNITS SUBQ SCH ×2 (08:10→20:10)
[2022-02-20] MEDS: Aspirin Enteric Coated 81 MG Tablet PO SCH (08:10)
[2022-02-20] MEDS: Psyllium 1 PACKET POWD.PACK PO SCH ×3 (08:10→20:12)
[2022-02-20] MEDS: *HR* Rivaroxaban 10 MG TABLET PO SCH (16:43)
[2022-02-20] MEDS: Melatonin 3 MG TABLET PO PRN (20:13)
[2022-02-20] MEDS: Latanoprost 2.5 ML BOTTLE BOTH EYES SCH (20:14)
[2022-02-21] MEDS: Nafcillin 2,000 MG in 0.9 % Sodium Chloride Mini Bag 100 ML IVPB SCH ×6 (00:03→20:17)
[2022-02-21] MEDS: Bisacodyl 10 MG RECTAL SUPPOSITORY RC SCH (03:59)
[2022-02-21] MEDS: Doxycycline 100 MG CAPSULE PO SCH ×2 (08:11→20:15)
[2022-02-21] MEDS: Psyllium 1 PACKET POWD.PACK PO SCH ×3 (08:11→20:16)
[2022-02-21] MEDS: lisinopriL 20 MG TABLET PO SCH (08:11)
[2022-02-21] MEDS: Lactobacillus 1 EACH CAP.SPRINK PO SCH ×2 (08:11→20:16)
[2022-02-21] MEDS: NIFEdipine XL (24 HR) 30 MG TAB.ER.24 PO SCH (08:11)
[2022-02-21] MEDS: Gabapentin 300 MG CAPSULE PO SCH ×3 (08:11→20:16)
[2022-02-21] MEDS: Aspirin Enteric Coated 81 MG Tablet PO SCH (08:12)
[2022-02-21] MEDS: Insulin DETEMIR 100 UNIT/ML X5UNITS SUBQ SCH ×2 (08:13→20:25)
[2022-02-21] MEDS: Insulin LISPRO 300 UNITS/3 ML VIAL SUBQ SCH ×3 (10:50→17:00)
[2022-02-21] MEDS: *HR* Rivaroxaban 10 MG TABLET PO SCH (16:51)
[2022-02-21] MEDS: Melatonin 3 MG TABLET PO PRN (20:23)
[2022-02-21] MEDS: Latanoprost 2.5 ML BOTTLE BOTH EYES SCH (20:50)
[2022-02-22] MEDS: Nafcillin 2,000 MG in 0.9 % Sodium Chloride Mini Bag 100 ML IVPB SCH ×6 (00:28→20:26)
[2022-02-22] MEDS: Bisacodyl 10 MG RECTAL SUPPOSITORY RC SCH (04:43)
[2022-02-22] MEDS: Insulin LISPRO 300 UNITS/3 ML VIAL SUBQ SCH ×3 (08:21→17:20)
[2022-02-22] MEDS: Insulin DETEMIR 100 UNIT/ML X5UNITS SUBQ SCH ×2 (08:22→20:25)
[2022-02-22] MEDS: Doxycycline 100 MG CAPSULE PO SCH ×2 (08:23→20:24)
[2022-02-22] MEDS: Psyllium 1 PACKET POWD.PACK PO SCH ×3 (08:23→20:24)
[2022-02-22] MEDS: Gabapentin 300 MG CAPSULE PO SCH ×3 (08:24→20:24)
[2022-02-22] MEDS: lisinopriL 20 MG TABLET PO SCH (08:24)
[2022-02-22] MEDS: Aspirin Enteric Coated 81 MG Tablet PO SCH (08:24)
[2022-02-22] MEDS: NIFEdipine XL (24 HR) 30 MG TAB.ER.24 PO SCH (08:24)
[2022-02-22] MEDS: Lactobacillus 1 EACH CAP.SPRINK PO SCH ×2 (08:24→20:25)
[2022-02-22] MEDS: *HR* Rivaroxaban 10 MG TABLET PO SCH (17:17)
[2022-02-22] MEDS: Melatonin 3 MG TABLET PO PRN (20:24)
[2022-02-22] MEDS: Latanoprost 2.5 ML BOTTLE BOTH EYES SCH (20:35)
[2022-02-23] MEDS: Nafcillin 2,000 MG in 0.9 % Sodium Chloride Mini Bag 100 ML IVPB SCH ×6 (00:32→20:40)
[2022-02-23] MEDS: Bisacodyl 10 MG RECTAL SUPPOSITORY RC SCH (04:52)
[2022-02-23] MEDS: Psyllium 1 PACKET POWD.PACK PO SCH ×3 (08:55→20:39)
[2022-02-23] MEDS: Aspirin Enteric Coated 81 MG Tablet PO SCH (08:55)
[2022-02-23] MEDS: Lactobacillus 1 EACH CAP.SPRINK PO SCH ×2 (08:56→20:39)
[2022-02-23] MEDS: Doxycycline 100 MG CAPSULE PO SCH ×2 (08:56→20:39)
[2022-02-23] MEDS: Gabapentin 300 MG CAPSULE PO SCH ×3 (08:56→20:39)
[2022-02-23] MEDS: NIFEdipine XL (24 HR) 30 MG TAB.ER.24 PO SCH (08:56)
[2022-02-23] MEDS: lisinopriL 20 MG TABLET PO SCH (08:56)
[2022-02-23] MEDS: Insulin DETEMIR 100 UNIT/ML X5UNITS SUBQ SCH ×2 (08:57→20:42)
[2022-02-23] MEDS: Insulin LISPRO 300 UNITS/3 ML VIAL SUBQ SCH ×3 (09:23→16:17)
[2022-02-23] MEDS: *HR* Rivaroxaban 10 MG TABLET PO SCH (16:16)
[2022-02-23] MEDS: Melatonin 3 MG TABLET PO PRN (20:39)
[2022-02-23] MEDS: Latanoprost 2.5 ML BOTTLE BOTH EYES SCH (23:09)
[2022-02-24] MEDS: Nafcillin 2,000 MG in 0.9 % Sodium Chloride Mini Bag 100 ML IVPB SCH ×6 (00:06→20:31)
[2022-02-24] MEDS: Bisacodyl 10 MG RECTAL SUPPOSITORY RC SCH (04:45)
[2022-02-24] MEDS: Insulin LISPRO 300 UNITS/3 ML VIAL SUBQ SCH ×3 (08:26→16:47)
[2022-02-24] MEDS: lisinopriL 20 MG TABLET PO SCH (08:38)
[2022-02-24] MEDS: Psyllium 1 PACKET POWD.PACK PO SCH ×3 (08:38→20:32)
[2022-02-24] MEDS: NIFEdipine XL (24 HR) 30 MG TAB.ER.24 PO SCH (08:39)
[2022-02-24] MEDS: Lactobacillus 1 EACH CAP.SPRINK PO SCH ×2 (08:39→20:32)
[2022-02-24] MEDS: Aspirin Enteric Coated 81 MG Tablet PO SCH (08:39)
[2022-02-24] MEDS: Doxycycline 100 MG CAPSULE PO SCH ×2 (08:40→20:32)
[2022-02-24] MEDS: Gabapentin 300 MG CAPSULE PO SCH ×3 (08:40→20:33)
[2022-02-24] MEDS: Insulin DETEMIR 100 UNIT/ML X5UNITS SUBQ SCH ×2 (08:41→20:31)
[2022-02-24] MEDS: *HR* Rivaroxaban 10 MG TABLET PO SCH (16:49)
[2022-02-24] MEDS: Melatonin 3 MG TABLET PO PRN (20:32)
[2022-02-24] MEDS: Latanoprost 2.5 ML BOTTLE BOTH EYES SCH (20:33)
[2022-02-25] MEDS: Nafcillin 2,000 MG in 0.9 % Sodium Chloride Mini Bag 100 ML IVPB SCH ×7 (00:16→23:51)
[2022-02-25] MEDS: Bisacodyl 10 MG RECTAL SUPPOSITORY RC SCH (05:12)
[2022-02-25] MEDS: Insulin LISPRO 300 UNITS/3 ML VIAL SUBQ SCH ×3 (07:35→17:41)
[2022-02-25] MEDS: Insulin DETEMIR 100 UNIT/ML X5UNITS SUBQ SCH ×2 (08:45→20:13)
[2022-02-25] MEDS: Psyllium 1 PACKET POWD.PACK PO SCH ×3 (08:46→20:06)
[2022-02-25] MEDS: Gabapentin 300 MG CAPSULE PO SCH ×3 (08:47→20:07)
[2022-02-25] MEDS: lisinopriL 20 MG TABLET PO SCH (08:47)
[2022-02-25] MEDS: Lactobacillus 1 EACH CAP.SPRINK PO SCH ×2 (08:47→20:07)
[2022-02-25] MEDS: NIFEdipine XL (24 HR) 30 MG TAB.ER.24 PO SCH (08:47)
[2022-02-25] MEDS: Aspirin Enteric Coated 81 MG Tablet PO SCH (08:47)
[2022-02-25] MEDS: *HR* Rivaroxaban 10 MG TABLET PO SCH (16:51)
[2022-02-25] MEDS: Latanoprost 2.5 ML BOTTLE BOTH EYES SCH (20:13)
[2022-02-25] MEDS: Melatonin 3 MG TABLET PO PRN (20:13)
[2022-02-26 04:59] LABS: Basophils # 0.1 K/mcL (0.0-0.2); Basophils % 1.2 %; Eosinophils # 0.6 K/mcL (0.0-0.6); Eosinophils % 9.9 %; Hematocrit 35.5 % (35.3-44.9); Hemoglobin 11.6 g/dL (11.5-15.4); Immature Granulocytes % 0.3 % (0-4); Lymphocytes # 2.6 K/mcL (0.6-4.6); Mean Corpuscular HGB Conc 32.7 g/dL (31.6-35.5); Mean Corpuscular Hemoglobin 28.9 pg (28.0-33.3); Mean Corpuscular Volume 88.5 fL (83.0-100.0); Mean Platelet Volume 9.3 fL (9.4-12.4); Monocytes # 0.6 K/mcL (0.0-1.3); Monocytes % 10.2 %; Neutrophils # 2.2 K/mcL (1.6-8.9); Platelet Count 236 K/mcL (140-400); Red Blood Count 4.01 M/mcL (3.82-4.97); Red Cell Distribution Width 14.6 % (11.5-14.5); Segmented Neutrophils % 36.4 %; White Blood Count 6.1 K/mcL (4.3-11.1)
[2022-02-26 05:16] LABS: Alanine Aminotransferase 10 Units/L (7-52); Albumin/Globulin Ratio 0.9 (1.1-2.2); Alkaline Phosphatase 106 Units/L (34-104); Aspartate Amino Transferase 14 Units/L (13-39); BUN/Creatinine Ratio 23 (6-26); Bilirubin,Total 0.4 mg/dL (0.3-1.0); Blood Urea Nitrogen 13 mg/dL (8-23); Calcium 9.9 mg/dL (8.6-10.3); Carbon Dioxide 26 mEq/L (23-29); Chloride 102 mEq/L (98-107); Globulin 3.2 g/dL (2.4-3.5); Glucose 119 mg/dL (70-105); Magnesium 1.8 mg/dL (1.6-2.6); Osmolality,Calculated 281 (280-300); Potassium 3.7 mEq/L (3.5-5.1); Sodium 135 mEq/L (136-145); Total Protein 6.2 g/dL (6.4-8.9)
[2022-02-26] MEDS: Nafcillin 2,000 MG in 0.9 % Sodium Chloride Mini Bag 100 ML IVPB SCH ×6 (05:20→23:09)
[2022-02-26] MEDS: Bisacodyl 10 MG RECTAL SUPPOSITORY RC SCH (05:21)
[2022-02-26] MEDS: Aspirin Enteric Coated 81 MG Tablet PO SCH (09:00)
[2022-02-26] MEDS: Psyllium 1 PACKET POWD.PACK PO SCH ×3 (09:00→17:49)
[2022-02-26] MEDS: Lactobacillus 1 EACH CAP.SPRINK PO SCH ×2 (09:00→20:19)
[2022-02-26] MEDS: lisinopriL 20 MG TABLET PO SCH (09:00)
[2022-02-26] MEDS: Gabapentin 300 MG CAPSULE PO SCH ×3 (09:01→17:49)
[2022-02-26] MEDS: Insulin LISPRO 300 UNITS/3 ML VIAL SUBQ SCH ×3 (09:13→17:51)
[2022-02-26] MEDS: NIFEdipine XL (24 HR) 30 MG TAB.ER.24 PO SCH (10:10)
[2022-02-26] MEDS: Insulin DETEMIR 100 UNIT/ML X5UNITS SUBQ SCH ×2 (10:10→20:20)
[2022-02-26] MEDS: *HR* Rivaroxaban 10 MG TABLET PO SCH (17:49)
[2022-02-26] MEDS: Melatonin 3 MG TABLET PO PRN (20:19)
[2022-02-26] MEDS: Latanoprost 2.5 ML BOTTLE BOTH EYES SCH (20:21)
[2022-02-26] MEDS: Acetaminophen 325 MG TABLET PO PRN (22:11)
[2022-02-27] MEDS: Nafcillin 2,000 MG in 0.9 % Sodium Chloride Mini Bag 100 ML IVPB SCH ×5 (04:09→19:55)
[2022-02-27] MEDS: Bisacodyl 10 MG RECTAL SUPPOSITORY RC SCH (05:58)
[2022-02-27] MEDS: Gabapentin 300 MG CAPSULE PO SCH ×3 (08:39→19:58)
[2022-02-27] MEDS: Aspirin Enteric Coated 81 MG Tablet PO SCH (08:39)
[2022-02-27] MEDS: Lactobacillus 1 EACH CAP.SPRINK PO SCH ×2 (08:39→19:58)
[2022-02-27] MEDS: NIFEdipine XL (24 HR) 30 MG TAB.ER.24 PO SCH (08:40)
[2022-02-27] MEDS: lisinopriL 20 MG TABLET PO SCH (08:40)
[2022-02-27] MEDS: Insulin DETEMIR 100 UNIT/ML X5UNITS SUBQ SCH ×2 (08:41→19:59)
[2022-02-27] MEDS: Psyllium 1 PACKET POWD.PACK PO SCH ×3 (08:41→19:58)
[2022-02-27] MEDS: Insulin LISPRO 300 UNITS/3 ML VIAL SUBQ SCH ×3 (08:42→17:15)
[2022-02-27] MEDS: *HR* Rivaroxaban 10 MG TABLET PO SCH (17:12)
[2022-02-27] MEDS: Latanoprost 2.5 ML BOTTLE BOTH EYES SCH (19:58)
[2022-02-27] MEDS: Acetaminophen 325 MG TABLET PO PRN (20:11)
[2022-02-27] MEDS: Melatonin 3 MG TABLET PO PRN (20:12)
[2022-02-28] MEDS: Nafcillin 2,000 MG in 0.9 % Sodium Chloride Mini Bag 100 ML IVPB SCH ×6 (00:11→20:12)
[2022-02-28 04:44] LABS: Hematocrit 36.9 % (35.3-44.9); Hemoglobin 11.8 g/dL (11.5-15.4); Mean Corpuscular Hemoglobin 28.8 pg (28.0-33.3); Mean Platelet Volume 9.4 fL (9.4-12.4); Platelet Count 196 K/mcL (140-400); Red Cell Distribution Width 14.8 % (11.5-14.5); White Blood Count 6.7 K/mcL (4.3-11.1)
[2022-02-28 05:00] LABS: Calcium 10.1 mg/dL (8.6-10.3); Magnesium 1.9 mg/dL (1.6-2.6); Potassium 3.8 mEq/L (3.5-5.1)
[2022-02-28] MEDS: Bisacodyl 10 MG RECTAL SUPPOSITORY RC SCH (05:05)
[2022-02-28] MEDS: Insulin DETEMIR 100 UNIT/ML X5UNITS SUBQ SCH ×2 (08:26→20:12)
[2022-02-28] MEDS: NIFEdipine XL (24 HR) 30 MG TAB.ER.24 PO SCH (08:26)
[2022-02-28] MEDS: Aspirin Enteric Coated 81 MG Tablet PO SCH (08:27)
[2022-02-28] MEDS: Gabapentin 300 MG CAPSULE PO SCH ×3 (08:27→20:08)
[2022-02-28] MEDS: Insulin LISPRO 300 UNITS/3 ML VIAL SUBQ SCH ×3 (08:27→16:24)
[2022-02-28] MEDS: Lactobacillus 1 EACH CAP.SPRINK PO SCH ×2 (08:27→20:08)
[2022-02-28] MEDS: lisinopriL 20 MG TABLET PO SCH (08:27)
[2022-02-28] MEDS: Psyllium 1 PACKET POWD.PACK PO SCH ×3 (08:28→20:12)
[2022-02-28] MEDS: *HR* Rivaroxaban 10 MG TABLET PO SCH (16:24)
[2022-02-28] MEDS: Melatonin 3 MG TABLET PO PRN (20:08)
[2022-02-28] MEDS: Latanoprost 2.5 ML BOTTLE BOTH EYES SCH (20:11)
[2022-03-01] MEDS: Bisacodyl 10 MG RECTAL SUPPOSITORY RC SCH (00:35)
[2022-03-01] MEDS: Acetaminophen 325 MG TABLET PO PRN ×2 (06:27→23:30)
[2022-03-01] MEDS: Psyllium 1 PACKET POWD.PACK PO SCH ×2 (08:28→17:40)
[2022-03-01] MEDS: NIFEdipine XL (24 HR) 30 MG TAB.ER.24 PO SCH (08:28)
[2022-03-01] MEDS: Aspirin Enteric Coated 81 MG Tablet PO SCH (08:29)
[2022-03-01] MEDS: Lactobacillus 1 EACH CAP.SPRINK PO SCH ×2 (08:29→20:24)
[2022-03-01] MEDS: Gabapentin 300 MG CAPSULE PO SCH ×3 (08:29→20:25)
[2022-03-01] MEDS: lisinopriL 20 MG TABLET PO SCH (08:29)
[2022-03-01] MEDS: cephALEXin 500 MG CAPSULE PO SCH ×3 (08:29→20:25)
[2022-03-01] MEDS: Insulin LISPRO 300 UNITS/3 ML VIAL SUBQ SCH ×3 (08:31→17:40)
[2022-03-01] MEDS: Insulin DETEMIR 100 UNIT/ML X5UNITS SUBQ SCH (08:38)
[2022-03-01] MEDS: *HR* Rivaroxaban 10 MG TABLET PO SCH (17:32)
[2022-03-01] MEDS: *HR* Metformin 500 MG TABLET PO SCH (17:32)
[2022-03-01] MEDS: Melatonin 3 MG TABLET PO PRN (20:24)
[2022-03-02] MEDS: Psyllium 1 PACKET POWD.PACK PO SCH ×4 (01:30→21:54)
[2022-03-02] MEDS: Latanoprost 2.5 ML BOTTLE BOTH EYES SCH ×2 (01:30→21:55)
[2022-03-02] MEDS: Bisacodyl 10 MG RECTAL SUPPOSITORY RC SCH (08:05)
[2022-03-02] MEDS: Insulin LISPRO 300 UNITS/3 ML VIAL SUBQ SCH ×2 (08:06→11:59)
[2022-03-02] MEDS: Gabapentin 300 MG CAPSULE PO SCH ×3 (08:25→21:54)
[2022-03-02] MEDS: Aspirin Enteric Coated 81 MG Tablet PO SCH (08:25)
[2022-03-02] MEDS: lisinopriL 20 MG TABLET PO SCH (08:25)
[2022-03-02] MEDS: cephALEXin 500 MG CAPSULE PO SCH ×3 (08:25→21:55)
[2022-03-02] MEDS: Lactobacillus 1 EACH CAP.SPRINK PO SCH ×2 (08:25→21:55)
[2022-03-02] MEDS: *HR* Metformin 500 MG TABLET PO SCH ×2 (08:25→15:55)
[2022-03-02] MEDS: NIFEdipine XL (24 HR) 30 MG TAB.ER.24 PO SCH (08:25)
[2022-03-02] MEDS: *HR* Rivaroxaban 10 MG TABLET PO SCH (15:55)
[2022-03-02] MEDS: Melatonin 3 MG TABLET PO PRN (21:54)
[2022-03-03] MEDS: Bisacodyl 10 MG RECTAL SUPPOSITORY RC SCH (05:59)
[2022-03-03] MEDS: Aspirin Enteric Coated 81 MG Tablet PO SCH (10:20)
[2022-03-03] MEDS: *HR* Metformin 500 MG TABLET PO SCH ×2 (10:20→15:24)
[2022-03-03] MEDS: lisinopriL 20 MG TABLET PO SCH (10:20)
[2022-03-03] MEDS: cephALEXin 500 MG CAPSULE PO SCH ×3 (10:21→20:41)
[2022-03-03] MEDS: Lactobacillus 1 EACH CAP.SPRINK PO SCH ×2 (10:21→20:40)
[2022-03-03] MEDS: Gabapentin 300 MG CAPSULE PO SCH ×3 (10:21→20:40)
[2022-03-03] MEDS: Psyllium 1 PACKET POWD.PACK PO SCH ×3 (10:21→20:41)
[2022-03-03] MEDS: NIFEdipine XL (24 HR) 30 MG TAB.ER.24 PO SCH (10:21)
[2022-03-03] MEDS: *HR* Rivaroxaban 10 MG TABLET PO SCH (15:24)
[2022-03-03 19:27] VITALS: RESP 16
[2022-03-03] MEDS: Latanoprost 2.5 ML BOTTLE BOTH EYES SCH (20:52)
[2022-03-04] MEDS: Bisacodyl 10 MG RECTAL SUPPOSITORY RC SCH (05:46)
[2022-03-04 07:03] VITALS: BP 164/80; PULSE 76; TEMP 98.3; O2SAT 94
[2022-03-04] MEDS: Lactobacillus 1 EACH CAP.SPRINK PO SCH (09:21)
[2022-03-04] MEDS: *HR* Metformin 500 MG TABLET PO SCH (09:21)
[2022-03-04] MEDS: NIFEdipine XL (24 HR) 30 MG TAB.ER.24 PO SCH (09:21)
[2022-03-04] MEDS: lisinopriL 20 MG TABLET PO SCH (09:21)
[2022-03-04] MEDS: Psyllium 1 PACKET POWD.PACK PO SCH (09:22)
[2022-03-04] MEDS: Gabapentin 300 MG CAPSULE PO SCH (09:22)
[2022-03-04] MEDS: cephALEXin 500 MG CAPSULE PO SCH (09:22)
[2022-03-04] MEDS: Aspirin Enteric Coated 81 MG Tablet PO SCH (09:22)
[2022-03-04] MEDS ORDERED: Flu Vac QV 22-23 (6MOS UP)/PF 0.5 ML SYRINGE IM ONE (12:15)
== END 2022-03-04 13:20 | disposition home health service (06) | DRG 551 ==
LOC: INPGRE 20:23
PROVIDERS: ADMIT Family Medicine; ATTEND Family Medicine